=== PATIENT | female | born 1995 | race Caucasian/White ===

== ENCOUNTER → 2020-05-05 10:40 | Outpatient (BNVA) | payer BC, SELFPAY | PROVIDERS: Family Provider Nurse Practitioner; PCP Nurse Practitioner; Visit Provider Nurse Practitioner | DX: Z12.4 Encounter for screening for malignant neoplasm of cervix (principal) | CPT/HCPCS: 88175 ==

== ENCOUNTER 2022-12-28 14:30 | Emergency (ER) | payer BC, SELFPAY ==
[2022-12-28 14:36] VITALS: BMI 21.2
[2022-12-28 14:41] VITALS: BP 120/65; PULSE 107; RESP 18; TEMP 36.8; O2SAT 96
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
[2022-12-28 17:47] VITALS: BP 111/58; PULSE 84; O2SAT 99
== END 2022-12-28 17:49 | disposition home or self-care (01) ==
PROVIDERS: Emergency Provider Emergency Medicine; PCP Nurse Practitioner
DX: O9A.212 Injury, poisoning and certain other consequences of external causes complicating pregnancy, second trimester (principal); S30.0XXA Contusion of lower back and pelvis, initial encounter; Z3A.18 18 weeks gestation of pregnancy; M54.50 Low back pain, unspecified; Z79.82 Long term (current) use of aspirin; V43.52XA Car driver injured in collision with other type car in traffic accident, initial encounter
CPT/HCPCS: 71045; 72170; 76815; 99284